=== PATIENT | female | born 1995 | race Caucasian/White ===

== ENCOUNTER 2017-09-18 00:17 | Emergency (ER) | payer OTHER ==
--- NOTE | 2017-09-18 00:31 | EDPHY ---
H & P Stated Complaint: R thumb injury, slammed between two kegs Time Seen by Provider: 09/18/17 00:24 HPI/ROS: Chief Complaint: Thumb injury HPI: 22-year-old woman was at work when she got her right thumb caught between to kegs, sustaining a crush injury. There are no lacerations. Denies any other injuries. Does have a large hematoma on the fat pad of her thumb. ROS: 10 point Review of Systems is negative except as noted in the HPI. PMH: Denies Social History: [No] smoking, [no] alcohol, [ no recreational drug use] Family History: [non-contributory] Physical Exam: General: Awake, alert, no acute distress Right hand: Patient has ecchymosis contusion of her right thumb. She has tenderness but no deformity. There is large blood collection on the fat pad. No erythema. Sensation is intact. Skin: No rash - Personal History LMP (Females 10-55): 1-7 Days Ago Current Tetanus Diphtheria and Acellular Pertussis (TDAP): Yes - Medical/Surgical History Hx Asthma: No Hx Chronic Respiratory Disease: No Hx Diabetes: No Hx Cardiac Disease: No Hx Renal Disease: No Hx Cirrhosis: No Hx Alcoholism: No Hx HIV/AIDS: No Hx Splenectomy or Spleen Trauma: No Other PMH: denies - Social History Smoking Status: Never smoked Constitutional: Initial Vital Signs Temperature (C) 36.8 C 09/18/17 00:21 Heart Rate 86 09/18/17 00:21 Respiratory Rate 20 09/18/17 00:21 Blood Pressure 125/85 H 09/18/17 00:21 O2 Sat (%) 99 09/18/17 00:21 O2 Delivery Mode Room Air Allergies/Adverse Reactions: No Known Allergies Allergy (Unverified 09/18/17 00:21) Medical Decision Making - Diagnostics Imaging Results: Thumb injury shows a linear fracture through the distal phalanx without displacement. This is my interpretation. Imaging: I viewed and interpreted images myself ED Course/Re-evaluation: Patient was placed in a aluminum cage thumb splint. I have referred her to Hand surgery for follow-up. - Data Points Medications Given: Discontinued Medications Ibuprofen (Motrin) 600 mg PO EDNOW ONE Stop: 09/18/17 00:50 Last Admin: 09/18/17 00:54 Dose: 600 mg Departure - Departure Disposition: Home, Routine, Self-Care Clinical Impression: Thumb fracture Condition: Good Instructions: Thumb Fracture (ED) Additional Instructions: You this splint on until your seen by the hand surgeon. Follow up with the hand surgeon later today, call later this morning for next available appointment. Apply ice for 15 min of every hour while awake. Alternate acetaminophen (1000 mg) with ibuprofen (400 mg) every 4 hours as needed for pain. Referrals: Cayetano Toth MD [Medical Doctor] - As per Instructions
[2017-09-18] MEDS ORDERED: IBUPROFEN 600 MG TAB PO ONE (00:38)
[2017-09-18] MEDS: IBUPROFEN 600 MG TAB PO ONE (00:54)
[2017-09-18 01:31] VITALS: BP 123/80
== END 2017-09-18 01:31 | disposition home or self-care (01) ==
LOC: EDSEX 00:17
DX: S62.524A Nondisplaced fracture of distal phalanx of right thumb, initial encounter for closed fracture (principal); W23.1XXA Caught, crushed, jammed, or pinched between stationary objects, initial encounter; Y99.0 Civilian activity done for income or pay; Y93.89 Activity, other specified

== ENCOUNTER 2018-05-16 07:27 | Emergency (ER) | payer OTHER ==
--- NOTE | 2018-05-16 08:10 | EDPHY ---
H & P Stated Complaint: suprapubic pain and dysuria x 3 days Time Seen by Provider: 05/16/18 08:10 - Personal History LMP (Females 10-55): 1-7 Days Ago - Medical/Surgical History Hx Asthma: No Hx Chronic Respiratory Disease: No Hx Diabetes: No Hx Cardiac Disease: No Hx Renal Disease: No Hx Cirrhosis: No Hx Alcoholism: No Hx HIV/AIDS: No Hx Splenectomy or Spleen Trauma: No Other PMH: denies - Social History Smoking Status: Never smoked Constitutional: Initial Vital Signs Temperature (C) 36.6 C 05/16/18 07:33 Heart Rate 82 05/16/18 07:33 Respiratory Rate 16 05/16/18 07:33 Blood Pressure 131/75 H 05/16/18 07:33 O2 Sat (%) 95 05/16/18 07:33 O2 Delivery Mode Room Air Allergies/Adverse Reactions: No Known Allergies Allergy (Unverified 09/18/17 00:21) Home Medications: Medication Instructions Recorded Cephalexin [Keflex (RX)] 500 mg PO TID #20 cap 05/16/18 Medical Decision Making ED Course/Re-evaluation: CHIEF COMPLAINT: Painful urination and frequent urination and burning urination since last night HISTORY OF PRESENT ILLNESS: 23-year-old healthy female whose had painful, frequent, burning urination since last night. It kept her up last night. Every time she goes to the bathroom. She does not have very much urine each time she goes. She believes she has urinary tract infection. She denies nausea vomiting or flank pain. She denies fevers or chills. REVIEW OF SYSTEMS: A comprehensive 10 system review of systems is otherwise negative aside from elements mentioned in the history of present illness and medical decision making. PHYSICAL EXAM: HR, BP, O2 Sat, RR. Temp noted General Appearance: Alert, well hydrated, appropriate, and non-toxic appearing. Head: Atraumatic without scalp tenderness or obvious injury Eyes: Pupils equal, round, reactive to light and accommodation, EOMI, no trauma , no injection. Ears: Clear bilaterally, no perforation, normal landmarks Nose: Atraumatic, no rhinorrhea, clear. Throat: There is no erythema or exudates, no lesions, normal tonsils, mucus membranes moist. Neck: Supple, 2+ carotid upstroke, nontender, no lymphadenopathy. Respiratory: No retractions, no distress, no wheezes, and no accessory muscle use. Lungs are clear to auscultation bilaterally. Cardiovascular: Regular rate and rhythm, no murmurs, rubs, or gallops. Bilateral carotid, radial, dorsalis pedis, and posterior tibial pulses intact. Good capillary refill all extremities. Gastrointestinal: Abdomen is soft, nontender, non-distended, no masses, no rebound, no guarding, no peritoneal signs. Musculoskeletal: Normal active ROM of all extremities, atraumatic. Neurological: Alert, appropriate, and interactive. The patient has normal DTRs and non-focal cranial nerves, motor, sensory, and cerebellar exam. Skin: No rashes, good turgor, no nodules on palpation. Past medical history: Prior UTI Past surgical history: Noncontributory Family history: Noncontributory Social history: Single, employed, does not abuse tobacco drugs or alcohol DIFFERENTIAL DIAGNOSIS: The differential diagnosis for the patient's abdominal pain included but was not limited to ovarian cyst, pelvic inflammatory disease, ovarian torsion, urinary tract infection, ectopic , cholecystitis, and appendicitis. MEDICAL DECISION MAKING: This patient has classic urinary tract symptoms. She has a benign abdomen. She also has a positive UA. I will treat her with Keflex and Pyridium and she will follow up with primary care physician. - Data Points Medications Given: Discontinued Medications Cephalexin HCl (Keflex) 500 mg PO EDNOW ONE PRN Reason: Protocol Stop: 05/16/18 08:43 Last Admin: 05/16/18 08:58 Dose: 500 mg Phenazopyridine HCl (Pyridium) 200 mg PO EDNOW ONE Stop: 05/16/18 08:43 Last Admin: 05/16/18 08:58 Dose: 200 mg Departure - Departure Disposition: Home, Routine, Self-Care Clinical Impression: Urinary tract infection Condition: Good Instructions: Urinary Tract Infection in Women (ED), Dysuria (ED) Referrals: NONE *PRIMARY CARE P,. [Primary Care Provider] - As per Instructions Prescriptions: Cephalexin [Keflex (RX)] 500 mg PO TID #20 cap
[2018-05-16] MEDS ORDERED: PHENAZOPYRIDINE HCL 200 MG TAB PO ONE (08:42)
[2018-05-16] MEDS ORDERED: CEPHALEXIN 500 MG CAP PO ONE (08:42)
[2018-05-16 09:05] VITALS: BP 122/70
[2018-05-17 11:47] LABS: GC AMPLIFICATION GENPROBE NEGATIVE (NEGATIVE)
== END 2018-05-16 09:04 | disposition home or self-care (01) ==
DX: N39.0 Urinary tract infection, site not specified (principal)